=== PATIENT | male | born 1985 | race Caucasian/White ===

== ENCOUNTER 2018-05-29 14:28 | Emergency (ER) | payer OTHER ==
[~2018-05-29] VITALS: Ht 167.6 cm; Wt 81.6 kg
[~2018-05-29 14:28] MED LIST: AMOX1TAB12 PO
== END 2018-05-29 17:33 | disposition home or self-care (01) ==
LOC: ER 14:28
DX: S97.111A Crushing injury of right great toe, initial encounter (principal); W22.8XXA Striking against or struck by other objects, initial encounter; Y93.89 Activity, other specified; Y92.89 Other specified places as the place of occurrence of the external cause; Y99.8 Other external cause status